=== PATIENT | female | born 1970 | race Caucasian/White ===

== ENCOUNTER → 2017-03-31 | Outpatient (CLI) | payer OTHER ==
[~2017-03-31] MED LIST: ZOLOFT
--- NOTE | 2017-04-03 09:14 | Diagnostic Imaging Report ---
Bilateral screening mammogram The current study was also evaluated with a Computer Aided Detection (CAD) system. INDICATION: Screening. No current complaints stated on the questionnaire. COMPARISON: 05/10/16 FINDINGS: The breasts are composed of heterogeneously dense parenchyma which may decrease mammographic sensitivity. There is an asymmetry along the far posterior slightly inferior aspect of the right MLO view measuring about 7 mm in size. The left breast demonstrate no definite change. IMPRESSION: Focal compression views and ultrasound evaluation for asymmetry along the far posterior slightly inferior aspect of the right MLO view is recommended. ACR BI-RADS Category 0: Incomplete. (Needs additional imaging evaluation). Result letter will be mailed to the patient. Note: At least 10% of breast cancer is not imaged by mammography. Dictated by: Dictated on workstation # [id number]
== END ==
LOC: RAD 14:58
PROVIDERS: ATTEND Obstetrics & Gynecology
DX: Z12.31 Encounter for screening mammogram for malignant neoplasm of breast (principal)
CPT/HCPCS: 77067

== ENCOUNTER → 2017-04-09 | Outpatient (CLI) | payer OTHER ==
--- NOTE | 2017-04-09 19:48 | Diagnostic Imaging Report ---
Right breast diagnostic mammogram. The current study was also evaluated with a Computer Aided Detection (CAD) system. INDICATION: Asymmetry along the lower aspect of the right MLO view posteriorly. FINDINGS: The right MLO view is repeated with the asymmetry not well demonstrated at this time. It could be secondary to a skin and muscle fold projecting over the inferior aspect of this image. Focal compression view demonstrates a curvilinear area of density likely related to breast parenchyma. IMPRESSION: The area of asymmetry is likely artifactual with no confirmed underlying lesion seen on additional evaluation. Ultrasound evaluation is pending. ACR BI-RADS Category 0: Incomplete. (Needs additional imaging evaluation). Result letter will be mailed to the patient. Note: At least 10% of breast cancer is not imaged by mammography. Dictated by: Dictated on workstation # [id number]
--- NOTE | 2017-04-09 19:50 | Diagnostic Imaging Report ---
Right breast ultrasound. INDICATION: Asymmetry along the posterior inferior aspect of the right breast. FINDINGS: Four quadrants and retroareolar region of the right breast was scanned with no abnormality seen. IMPRESSION: Negative study. Annual screening mammograms recommended. ACR BI-RADS Category 1: Negative. Dictated by: Dictated on workstation # [id number]
== END ==
LOC: RAD 07:50
PROVIDERS: ATTEND Obstetrics & Gynecology
DX: R92.8 Other abnormal and inconclusive findings on diagnostic imaging of breast (principal)
CPT/HCPCS: 76641

== ENCOUNTER → 2018-05-07 | Outpatient (CLI) | payer BC, OTHER ==
--- NOTE | 2018-05-07 17:51 | Diagnostic Imaging Report ---
INDICATION: Routine screening. COMPARISON: Comparison is made with prior study from 03/31/2017 and 05/10/2016. TECHNIQUE: 2D and 3D bilateral screening mammography was performed with computer-aided detection (CAD) system. FINDINGS: Scattered fibroglandular densities are identified bilaterally. The parenchymal pattern is stable. No dominant mass or malignant appearing microcalcifications are seen. The axillae are unremarkable. IMPRESSION: No mammographic features suspicious for malignancy are identified. ACR BI-RADS Category 1: Negative. Result letter will be mailed to the patient. Note: At least 10% of breast cancer is not imaged by mammography. Dictated by: Dictated on workstation # [id number]
== END ==
LOC: RAD 13:14
PROVIDERS: ATTEND Obstetrics & Gynecology
DX: Z12.31 Encounter for screening mammogram for malignant neoplasm of breast (principal)
CPT/HCPCS: 77067

== ENCOUNTER → 2019-05-11 | Outpatient (CLI) | payer BC ==
--- NOTE | 2019-05-11 19:27 | Diagnostic Imaging Report ---
INDICATION: Routine screening. Comparison is made with prior mammograms from 05/07/2018 and 03/31/2017. 2-D and 3-D bilateral screening mammography was performed. The current study was also evaluated with a Computer Aided Detection (CAD) system. 3-D tomosynthesis was also performed and reviewed. FINDINGS: Scattered fibroglandular densities are identified bilaterally. No mass or malignant-appearing microcalcifications are seen. The axillae are unremarkable. IMPRESSION: No mammographic features suspicious for malignancy are identified. ACR BI-RADS Category 1: Negative. Result letter will be mailed to the patient. Note: At least 10% of breast cancer is not imaged by mammography. Dictated by: Dictated on workstation # [id number]
== END ==
LOC: RAD 08:49
PROVIDERS: ATTEND Obstetrics & Gynecology
DX: Z12.31 Encounter for screening mammogram for malignant neoplasm of breast (principal)
CPT/HCPCS: 77067

== ENCOUNTER → 2020-07-18 | Outpatient (CLI) | payer BC | LOC: LABNPT 06:39 | PROVIDERS: ATTEND Family Medicine | DX: Z20.828 Contact with and (suspected) exposure to other viral communicable diseases (principal) | CPT/HCPCS: 87635 ==

== ENCOUNTER → 2021-04-23 | Outpatient (CLI) | payer BC ==
--- NOTE | 2021-04-23 10:53 | Diagnostic Imaging Report ---
INDICATION: Routine screening. COMPARISON: 05/11/2019 and 05/07/2018. TECHNIQUE: 2D and 3D bilateral screening mammography was performed with CAD. FINDINGS: Scattered fibroglandular densities are identified bilaterally. The parenchymal pattern is stable. No mass or malignant-appearing microcalcifications are seen. The axillae are unremarkable. IMPRESSION: No mammographic features suspicious for malignancy are identified. ACR BI-RADS Category 1: Negative. Result letter will be mailed to the patient. Note: At least 10% of breast cancer is not imaged by mammography. Dictated by: Dictated on workstation # [id number]
== END ==
LOC: RAD 08:15
PROVIDERS: ATTEND Obstetrics & Gynecology
DX: Z12.31 Encounter for screening mammogram for malignant neoplasm of breast (principal)
CPT/HCPCS: 77063; 77067

== ENCOUNTER → 2022-04-24 | Outpatient (CLI) | payer BC ==
--- NOTE | 2022-04-24 12:18 | Diagnostic Imaging Report ---
Indication: Routine screening. Comparison is made with prior mammogram 04/23/2021 and 05/11/2019. 2-D and 3-D bilateral screening mammography was performed with CAD. CAD is utilized. The current study was also evaluated with a Computer Aided Detection (CAD) system. Scattered fibroglandular densities are identified bilaterally. The parenchymal pattern is stable. No mass or malignant-appearing microcalcifications are seen. Axillae are unremarkable. IMPRESSION: BI-RADS Category 1 No mammographic features suspicious for malignancy are identified. ACR BI-RADS Category 1: Negative. Result letter will be mailed to the patient. Note: At least 10% of breast cancer is not imaged by mammography. Dictated by: Dictated on workstation # [id number]
== END ==
LOC: RAD 09:39
PROVIDERS: ATTEND Obstetrics & Gynecology
DX: Z12.31 Encounter for screening mammogram for malignant neoplasm of breast (principal)
CPT/HCPCS: 77063; 77067

== ENCOUNTER 2022-05-23 05:36 | Outpatient (CLI) | payer BC ==
[~2022-05-23] VITALS: Ht 165 cm; Wt 97.7 kg
[2022-05-23] MEDS ORDERED: OMEG100032 PO (11:09)
[2022-05-23] MEDS ORDERED: MEDR2.5T6 PO (11:09)
[2022-05-23] MEDS ORDERED: ESTR1TAB27 PO (11:09)
[2022-05-23] MEDS ORDERED: LISI1TAB44 PO (11:09)
[2022-05-23] MEDS ORDERED: METO50TA7 PO (11:09)
== END 2022-05-23 11:16 | disposition home or self-care (01) ==
LOC: PREOP 05:36
PROVIDERS: ATTEND Internal Medicine
DX: Z01.818 Encounter for other preprocedural examination (principal)

== ENCOUNTER 2022-05-31 09:34 | Day surgery (SDC) | payer BC ==
--- NOTE | 2022-05-22 18:02 | HISTORY AND PHYSICAL ---
DATE OF SERVICE: COLONOSCOPY HISTORY AND PHYSICAL HISTORY OF PRESENT ILLNESS: The patient is a 51-year-old white female being referred by Dr. Dickerson for her first screening colonoscopy. She is deemed to be of average risk as she is not aware of any family history for colon cancer. She denies bowel habit change, bright red blood per rectum, melena or change in weight. She denies abdominal pain. PAST MEDICAL HISTORY: Significant for hypertension, allergic rhinitis. MEDICATIONS ON ADMISSION: Include Soma 350 mg that she takes p.r.n. muscle spasm, lisinopril HCT 10/12.5 mg daily, metoprolol ER 50 mg daily, estradiol 1 mg daily, loratadine 10 mg daily and medroxyprogesterone 2.5 mg daily. PAST SURGICAL HISTORY: She does have bilateral carpal tunnel in a month and is being scheduled for bilateral carpal tunnel repair, endoscopic. FAMILY HISTORY: Father living at age 75 with hypertension and arthritis. Mother living at age 72 with hypertension and on thyroid replacement for presumed Deon's thyroiditis. 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 She is , with two children, 5-pack-year smoking history, quit 10 years ago. Occasional small volume alcohol consumption. REVIEW OF SYSTEMS: CONSTITUTIONAL: Denies night sweats, chills, fever, change in weight. PULMONARY: Denies cough, wheezing or shortness of breath. CARDIOVASCULAR: Denies orthopnea, PND, pedal edema or chest discomfort. GASTROINTESTINAL: As noted in the HPI. PHYSICAL EXAMINATION: GENERAL: Reveals a pleasant white female, appears to be in no acute distress. VITAL SIGNS: Weight 215 pounds, blood pressure 130/74. HEENT: Unremarkable. Sclerae nonicteric. CHEST: Clear to auscultation. CARDIOVASCULAR: Reveals a regular rate and rhythm without murmur, S3 or S4. ABDOMEN: Soft, supple without mass, organomegaly or tenderness. EXTREMITIES: Reveal no cyanosis, clubbing or edema. ASSESSMENT AND PLAN: The patient is being set up for her first screening colonoscopy, deemed to be of average risk. Prep instructions were given and questions were answered. I thank you for the referral of this pleasant lady. Job ID: [id number] DocumentID: [id number] Dictated Date: 05/22/2022 17:40:58 Language Translator Date: 05/22/2022 18:01:27 Dictated By: BRICE PALACIOS MD
[~2022-05-31] VITALS: Ht 165 cm; Wt 97.7 kg
[~2022-05-31 09:34] MED LIST changes: +ESTR1TAB27 PO; +LISI1TAB44 PO; +MEDR2.5T6 PO; +METO50TA7 PO; +OMEG100032 PO
[2022-05-31] MEDS ORDERED: LACTATED RINGERS 1,000 ML IV STA (09:40)
[2022-05-31 09:50] VITALS: BP 135/83
[2022-05-31] MEDS ORDERED: PROPOFOL INJECTION 50 ML IV ONE (10:21)
[2022-05-31] MEDS ORDERED: MIDAZOLAM 2 MG/2 ML (VERSED) VIAL ONE (10:21)
--- NOTE | 2022-05-31 10:22 | Pre-Op Note & Conscious Sedat ---
Pre-Operative Progress Note Date H&P Reviewed: May 31, 2022 Time H&P Reviewed: 10:05 History & Physical: H&P Reviewed, Patient Examed, No changes noted Pre-Op Diagnosis: screening Conscious Sedation Pre-Proced ASA Score 2 For ASA 3 and 4: Consider anesthesia and medical clearance. Also, for patients with a history of failed moderate sedation consider anesthesia. Airway Lungs Heart ASA score ASA 1: a normal healthy patient ASA 2: a patient with a mild systemic disease (mid diabetes, controlled hypertension, obesity ASA 3: a patient with a severe systemic disease that limits activity (angina, COPD, prior Myocardial infarction) ASA 4: a patient with an incapacitating disease that is a constant threat to life (CHF, renal failure) ASA 5: a moribund patient not expected to survive 24 hrs. (ruptured aneurysm) ASA 6: a declared brain- patient whose organs are being harvested. For emergent operations, add the letter E after the classification Mallampati Classification Grade 2 Sedation Plan Analgesia, Amnesia, Plan communicated to team members, Discussed options with patient/fam, Discussed risks with patient/fam The patient is an appropriate candidate to undergo the planned procedure, sedation, and anesthesia. The patient immediately re-assessed prior to indication. BRICE PALACIOS MD May 31, 2022 10:22
[2022-05-31 10:50] VITALS: BP 120/68
--- NOTE | 2022-05-31 10:54 | Progress Note-Post Operative ---
Post-Procedure Note Physician (s)/Shuttle Fitting Supervisor (s) Physician BRICE PALACIOS MD Pre-Procedure Diagnosis Pre-Procedure Diagnosis: screening Post-Procedure Diagnosis Post-operative diagnosis: normal colonoscopy BRICE PALACIOS MD May 31, 2022 10:54
[2022-05-31 10:55] VITALS: BP 119/60
[2022-05-31 11:00] VITALS: BP 119/60
[2022-05-31 11:16] VITALS: BP 119/60
--- NOTE | 2022-05-31 11:36 | Anesthesia-General Post-Op ---
MAC Patient Condition Mental Status/LOC: Same as Preop Cardiovascular: Satisfactory Nausea/Vomiting: Absent Respiratory: Satisfactory Pain: Controlled Complications: Absent Post Op Complications Complications None Follow Up Care/Instructions Patient Instructions None needed. Anesthesiology Discharge Order Discharge Order Patient is doing well, no complaints, stable vital signs, no apparent adverse anesthesia problems. No complications reported per nursing. MINA GREGORIO CRNA May 31, 2022 11:36
--- NOTE | 2022-05-31 15:38 | OPERATIVE REPORT ---
DATE OF SERVICE: COLONOSCOPY SUMMARY INDICATION FOR THE PROCEDURE: Screening colonoscopy. DESCRIPTION OF PROCEDURE: The patient was placed in the left lateral decubitus position. Prior to undergoing colonoscopy, digital rectal evaluation was performed. Anal sphincter tone was normal. Perianal reflexes intact. No abnormalities were noted on digital inspection of anal canal or distal rectal vault. The colonoscope was then inserted into the rectum and under direct visualization advanced to cecum. The cecum was identified by identification of the ileocecal valve and appendiceal orifice. Careful inspection was made as the colonoscope was withdrawn. Quality of prep was good. FINDINGS: No evidence for internal or external hemorrhoids. The rectum, sigmoid colon, descending colon, splenic flexure, transverse colon, hepatic flexure, ascending colon, and cecum were unremarkable with no evidence for neoplasia or diverticular disease. ASSESSMENT: Normal colonoscopy to the cecum under good prep conditions. As the patient reports no family history for colon cancer, we would advocate consideration for repeat screening colonoscopy in 10 years. I thank you for the referral of this pleasant lady. Job ID: [id number] DocumentID: [id number] Dictated Date: 05/31/2022 10:52:53 Hat Body Inspector Date: 05/31/2022 15:38:18 Dictated By: BRICE PALACIOS MD
== END 2022-05-31 11:27 | disposition home or self-care (01) ==
LOC: ENDO 09:34
PROVIDERS: ATTEND Internal Medicine
DX: Z12.11 Encounter for screening for malignant neoplasm of colon (principal); G47.33 Obstructive sleep apnea (adult) (pediatric); Z87.891 Personal history of nicotine dependence
CPT/HCPCS: 84703